=== PATIENT | male | born 1955 | race Hispanic/Latino ===

== ENCOUNTER 2020-08-18 08:07 | Outpatient (CLI) | payer MEDICARE ==
[2020-08-18] MEDS ORDERED: REGADENOSON 0.4 MG/5 ML INJ IV ONE (08:53)
--- NOTE | 2020-08-19 01:10 | Treadmill Report ---
DATE OF SERVICE: 08/18/2020 NUCLEAR PERFUSION SCAN REFERRING PHYSICIAN: Dr. Lucio Chua. PROTOCOL: The patient was brought to stress test lab in a postabsorptive state given 10 mCi of technetium at rest. The patient had rest imaging. The patient underwent Lexiscan stress test per standard protocol. At peak stress, the patient given 26 mCi of Technetium-99m. Shortly thereafter, the patient had stress imaging. Raw imaging reveals mild GI artifact, no significant motion artifact. SPECT imaging examined carefully in the horizontal long axis, vertical long axis, and short axis views. Technically difficult study due to GI artifact, but grossly no evidence of significant fixed or reversible perfusion defect suggestive of prior infarction or ischemia. Gated wall motion reveals normal systolic thickening, calculated ejection fraction 62%. No TID. CONCLUSIONS: 1. Technically difficult study partially obscuring the inferior wall, but grossly no evidence of a significant fixed or reversible perfusion defects, suggestive of prior infarction or active ischemia. 2. Normal left ventricular systolic performance without evidence of transient ischemic dilatation or stress induced segmental wall motion abnormalities. 3. Suggest clinical correlation. TID: [id number] RECEIPT: [id number] ADRIANA/MATTY
== END 2020-08-18 08:08 | disposition home or self-care (01) ==
LOC: CATH 08:07
PROVIDERS: ATTEND Internal Medicine
DX: Z01.812 Encounter for preprocedural laboratory examination (principal); R60.9 Edema, unspecified; R00.2 Palpitations; I73.9 Peripheral vascular disease, unspecified; I10 Essential (primary) hypertension; Z79.899 Other long term (current) drug therapy; Z82.49 Family history of ischemic heart disease and other diseases of the circulatory system
CPT/HCPCS: 78452; 93017; A9502; J2785